=== PATIENT | male | born 1995 ===

== ENCOUNTER 2023-02-17 16:16 | Outpatient (CLI) | payer BC ==
--- NOTE | 2023-02-17 17:06 | XRAY Report ---
PROCEDURE: Foot 3 View LT INDICATIONS: PAIN IN L TOE TECHNIQUE: 3 views of the foot were acquired. COMPARISON: None. FINDINGS: Bones: There is shaft periosteal reaction involving the proximal phalanx of the third toe. There is a question of subluxation at the MTP joint. Soft tissues: No suspicious soft tissue calcifications or masses. IMPRESSION: Shaft periosteal reaction involving the proximal phalanx of the third toe may represent subtle findin gs of a stress fracture. There is suggestion of possible subluxation at the third toe MTP joint. Reviewed by: Petr Avendano MD on 02/17/2023 5:04 PM PDT Approved by: Petr Avendano MD on 02/17/2023 5:04 PM PDT Station ID: [id number]
== END 2023-02-17 16:17 | disposition home or self-care (01) ==
LOC: DI 16:16
PROVIDERS: ATTEND Physician Assistant
DX: M79.675 Pain in left toe(s) (principal); R93.6 Abnormal findings on diagnostic imaging of limbs

== ENCOUNTER 2023-03-14 08:51 | Outpatient (CLI) | payer BC ==
--- NOTE | 2023-03-15 08:16 | MRI Report ---
PROCEDURE: FOOT W/WO - LT INDICATIONS: TUMOR OF BONES OF THE FEET CONTRAST: GADAVIST 7.7ML TECHNIQUE: Noncontrast sagittal T1 spin echo and T2 fast spin echo with fat saturation, long-axis T1 spin echo a nd T2 fast spin echo with fat saturation; short-axis T1 spin echo, proton density fast spin echo, and T2 fast spin echo with fat saturation through the forefoot. Post-contrast short axis, long axis, an d sagittal T1 spin echo with fat saturation through the forefoot. COMPARISON: Left foot radiographs 02/17/2023. FINDINGS: Image quality: Images are mildly degraded by patient motion on multiple pulse sequences. Diagnostic information is obtained. Bones and joints: Mild diffuse edema is seen within the third metatarsal head and shaft as well as t he third proximal phalanx with associated osseous enhancement. There is surrounding cortical thickeni ng and periosteal new bone formation. No discrete fracture line is seen. There is mild superior sublu xation at the third metatarsophalangeal joint. A large joint effusion is present. There is mild adjac ent soft tissue edema. The sesamoid bones appear in expected positions, without internal edema. No i ntraosseous lesions. Soft tissues: No enhancing soft tissue mass. There is disruption of the plantar plate at the third me tatarsophalangeal joint. There is no disruption of the medial and lateral collateral ligaments of the third metatarsophalangeal joint likely at the proximal attachments. The visualized plantar foot musc les demonstrate normal signal and bulk. Visualized flexor and extensor tendons appear intact, withou t tenosynovitis. The distal insertion of the peroneus longus tendon appears intact. The principal L isfranc ligament appears intact. No soft tissue ganglion cysts or bursal fluid collections. IMPRESSION: 1.Mild superior subluxation of the third metatarsophalangeal joint with surrounding osseous edema and enhancement in the third metatarsal and the third proximal phalanx with associated cortical thickeni ng and periosteal new bone formation. No discrete fracture line is seen. Findings may be related to o sseous contusions,repetitive stress injury, or less likely infection. Recommend correlation with clin ical findings. Large third metatarsophalangeal joint effusion. 2.Complete tearing of the plantar plate as well as the medial and lateral collateral ligaments at the third metatarsophalangeal joint. Reviewed by: Paul Sin MD on 03/15/2023 8:15 AM PDT Approved by: Paul Sin MD on 03/15/2023 8:15 AM PDT Station ID: [id number]
== END 2023-03-14 08:52 | disposition home or self-care (01) ==
LOC: DI 08:51
PROVIDERS: ATTEND Orthopaedic Surgery Sports Medicine
DX: S93.332A Other subluxation of left foot, initial encounter (principal); S93.692A Other sprain of left foot, initial encounter
CPT/HCPCS: 73720; A9585

== ENCOUNTER 2024-01-05 01:51 | Emergency (ER) | payer SELFPAY ==
[2024-01-05 02:27] VITALS: O2SAT 99
[2024-01-05] MEDS: BACITRACIN ZINC OINT 1 PACKET TOP STA (03:05)
--- NOTE | 2024-01-05 03:09 | ED Physician Documentation ---
History of Present Illness - Stated complaint Stated Complaint: NOSE INJ - Chief complaint Chief Complaint: Laceration - History obtained from History obtained from: Patient - Additonal information Additional information: 20-year-old man presents after falling down a few steps and scraping the bridge of his nose. Denies trauma or LOC. PD PAST MEDICAL HISTORY - Past Medical History Past Medical History: No - Past Surgical History Past Surgical History: No - Present Medications Home Medications: Ambulatory Orders Medication Instructions Recorded Confirmed No Known Home Medications 01/05/24 01/05/24 - Allergies Allergies/Adverse Reactions: Allergies Allergy/AdvReac Type Severity Reaction Status Date / Time No Known Drug Allergies Allergy Verified 01/05/24 02:19 - Social History Does the pt smoke?: No Smoking Status: Never smoker Does the pt drink ETOH?: Yes ETOH Use: Beer Does the pt have substance abuse?: No - Immunizations Immunizations are current?: Yes - POLST Patient has POLST: No PD ED PE NORMAL - Vitals Vital signs reviewed: Yes - General General: Alert and oriented X 3, No acute distress, Well developed/nourished - HEENT HEENT: Atraumatic, PERRL, EOMI, Moist mucous membranes, Pharynx benign, Other (1 cm vertical laceration to bridge of nose, hemostatic) - Neck Neck: Supple, no meningeal sign Results - Vitals Vitals: Vital Signs - 24 hr 01/05/24 02:05 Temperature 36.1 C L Heart Rate 96 Respiratory 16 Rate Blood Pressure 118/81 H O2 Saturation 99 Oxygen O2 Source Room air Procedures - Laceration (location) Nose Length in cm: 1 Wound type: Linear Neurovascular status: Sensory intact, Motor intact, Vascular intact Anesthesia: Lidocaine 1% with epi Wound preparation: Irrigated copiously NS, Wound explored, To the base, Multiple flaps aligned, Limited undermining Skin layer closure: Nylon, Size #-0 - enter number (6), Sutures - enter # (3) Other: Patient tolerated well, No complications, Dressing applied, Tetanus UTD PD Medical Decision Making - ED course ED course: 28-year-old male presents with laceration to the bridge of the nose that was repaired without difficulty. Return precautions given. Plan to have it removed in 3 to 5 days. Departure - Departure Clinical Impression: Laceration of nose Condition: Stable Instructions: ED Laceration All Comments: You were seen in the emergency department for Laceration of nose. 3 stitches were placed that need to be removed in 3 to 5 days at walk in clinic. Keep the bandage clean and dry for 24 to 48 hours. You can use gentle soap and water thereafter but please be very careful with the area. Please follow-up with your primary care provider and return to the emergency department if you have any new or worsening symptoms or other concerns.
[2024-01-05 03:30] VITALS: BP 109/72
== END 2024-01-05 03:26 | disposition home or self-care (01) ==
LOC: ED 01:51
DX: S01.21XA Laceration without foreign body of nose, initial encounter (principal); W10.9XXA Fall (on) (from) unspecified stairs and steps, initial encounter
CPT/HCPCS: 12011; 99283; A9270